=== PATIENT | female | born 1985 | race Caucasian/White ===

== ENCOUNTER 2017-11-16 12:30 | Inpatient (IN) | payer BC, SELFPAY ==
--- NOTE | 2017-11-16 12:57 | PCM.HP.OB ---
History Date of Admission: 11/16/17 Final NIC: 11/18/17 Final NIC Source: LMP Gestational age: 39 Weeks and 5 Days History of this : 32yo @ 39.5 wks, c/o irregular contractions and more pressure since being seen in Office today- pt was 5-6/80/+1 in office- recheck on L&D was 780/+1. pt kept for labor. pt is GBS +. Pertinent Past Medical History: Negative PMH Allergies No Known Allergies Allergy (Verified 10/09/14 21:29) Smoking Status: Never smoker Alcohol: None Drug Use: none Number of Fetus(es): 1 Review of Systems Constitutional: Denies: Anorexia Cardiovascular: Denies: Chest Pain Gastrointestinal: Reports: - - contractions Physical Exam General: Alert, Oriented x3 Abdomen: Soft, Gravid Estimated gestational size: Appropriate for gestational size Presentation: Cephalic Cervix Dilation (cm): 7 Station: 1 Effacement (%): 80 Assessment/Plan 32yo @ 39.5 wks in labor 1) admit to L&D 2) Monitor FHR/TOCO 3) Anticipate 4) Labs reviewed, GBS +, HIV neg, HEP B neg, RUB imm, Syphilis neg, A+ 5) GBS prophylaxis 6) Epdiural if requested for pain mgmt
[2017-11-16] MEDS: Lactated Ringers 1,000 ML 50 ML IV ×2 (12:59→14:01)
[2017-11-16 13:01] VITALS: BMI 25.4
[2017-11-16 13:14] LABS: Hematocrit 35.9 % (37-47); Hemoglobin 11.5 g/dl (12.0-15.0); Mean Corpuscular Hgb 28.3 pg (27.0-32.0); Mean Corpuscular Volume 88.2 fL (81-99); Mean Platelet Vol. 11.3 fl (6.2-12.0); Platelet Count 150 K/mm3 (150-450); RBC Distribution Width CV 13.5 % (11.6-14.6); RBC Distribution Width SD 43.1 fl (35.1-43.9); Red Blood Count 4.07 M/mm3 (4.2-5.4); White Blood Count 11.6 K/mm3 (4.4-11.0)
[2017-11-16 13:22] LABS: Scan Indicated on CBC? Y/N NO
--- NOTE | 2017-11-16 16:41 | PCM.PN.BLA ---
Progress Note pt seen at bedside, doing well. pt reports good pain control with epidural. Does have some pressure. VE: 9/100/+1. Continue to labor- anticipate .
[2017-11-16] MEDS: Oxytocin 30 units/NS 500 ml 30 UNITS/500 ML IV.SOLN 334 UNITS IV (17:23)
--- NOTE | 2017-11-16 17:25 | PCM.OB.VAG ---
Vaginal Delivery Maternal Presentation: Active Labor Amniotic Membrane Rupture Type: Artificial Amniotic Fluid Description: Clear Final NIC: 11/18/17 Gestational age: 39 Weeks and 5 Days Date of Procedure: 11/16/17 Pre-Operative Diagnosis: term gestation in labor Post-Operative Diagnosis: Live female Surgery/ Procedure Performed: Spontaneous Vaginal Delivery Type of Anesthesia: Epidural Description of Procedure: of live female born without complications. Presentation: Vertex Placental Delivery Description: Spontaneous Placenta Disposition: [facility] Cord Vessel Description: 3 Vessels Nuchal Cord Compression: Without compression Cord Entanglement: None Drain: Donaldson to straight drain Estimated Blood Loss: 250 Infant A gender: Female (1 minute): 8 (5 minute): 9 Episiotomy Description: None Laceration: Vaginal Extension/lac - repaired with 3-0 rapide, 1st degree Medications given after delivery: IV Pitocin Complications: None
[2017-11-16] MEDS: Oxytocin 30 units/NS 500 ml 30 UNITS/500 ML IV.SOLN 167 UNITS IV (18:00)
[2017-11-16] MEDS: 0.9% Saline Lock 10 ML Syringe IV (18:54)
[2017-11-16] MEDS: Naproxen 250 MG Tablet PO (22:36)
[2017-11-17] VITALS: BP 108/59; PULSE 70; RESP 16; TEMP 37.2; O2SAT 97
[2017-11-17 04:15] VITALS: BP 111/73; PULSE 66; RESP 16; TEMP 37.2; O2SAT 98
[2017-11-17 08:00] VITALS: BP 105/65; PULSE 76; RESP 20; TEMP 36.9
--- NOTE | 2017-11-17 09:06 | PCM.PN.OB ---
Subjective: doing well, average lochia - Physical Exam General: Alert, Cooperative, No apparent distress Vital Signs Temp Pulse Resp BP Pulse Ox 98.4 F 76 20 H 105/65 98 11/17/17 08:00 11/17/17 08:00 11/17/17 08:00 11/17/17 08:00 11/17/17 04:15 Oxygen Delivery Method Room Air Weight: 73.6 kg Body Mass Index (BMI) 25.4 Intake and Output for Last 24 Hours 11/15/17 11/16/17 11/17/17 23:59 23:59 23:59 Output Total 1200 / 1200 Balance -1200 / -1200 Laboratory Tests Past 24 Hrs 11/16/17 11/16/17 13:00 13:00 WBC 11.6 H RBC 4.07 L Hgb 11.5 L Hct 35.9 L MCV 88.2 MCH 28.3 MCHC 32.0 RDW 13.5 RDW Differential 43.1 Plt Count 150 MPV 11.3 Blood Type A POSITIVE Antibody Screen NEGATIVE Assessment/Plan PPD#1 doing well routine care
[2017-11-17 12:00] VITALS: BP 106/60; BP 115/69; PULSE 71; PULSE 84; RESP 14; TEMP 36.8; TEMP 37.3
[2017-11-17 16:00] VITALS: BP 125/67; PULSE 72; RESP 16; TEMP 36.6
[2017-11-17 20:50] VITALS: BP 118/70; PULSE 74; RESP 17; TEMP 36.8; O2SAT 100
--- NOTE | 2017-11-17 21:58 | DCINST_ITS ---
Discharge Diet: No Restrictions Discharge Activity: Return to Normal Activity, May not drive while taking narcotic pain medications., May Shower May resume sexual activity in: 4-6 weeks Additional Activity Instructions:: Nothing in the vagina for 4-6 weeks. You may return to work/school in 6 weeks. Call your doctor if your incision/area has: Continuous Slow Oozing, Sudden Increased Bleeding, Increased Pain/ Swelling, Increased Redness, Foul Smelling Discharge Additional Instructions: If you experience any of the following, contact your healthcare provider. * Bleeding that soaks a pad every hour for 2 hours * Fever 100.4 or higher * Unrelieved incision or abdominal pain * Swelling, redness, discharge or bleeding from your incision or episiotomy site * Your incision begins to separate * Problems urinating (including inability to urinate or burning while urinating) . * Visual changes * Severe headache * Flu-like symptoms * Pain or redness in one of both of your breasts * Pain, warmth, tenderness or swelling in your legs, especially the calf area * Frequent nausea and vomiting * Symptoms of depression or anxiety If you experience any of the following, call 911 or go to the nearest Emergency Room. * Chest pain * Problems breathing * Seizure activity * Partial or complete paralysis of a body part, slurred speech, weakness or drooping of the face, or a sudden inability to walk or hold your balance Allergies/Adverse Reactions: Allergies No Known Allergies Allergy (Verified 10/09/14 21:29) Medications to take at Discharge Vits [Prenatabs FA ] 1 tablet PO DAILY 10/09/14 Ibuprofen [Motrin] 600 mg PO Q6H PRN #60 tab 11/17/17 The following prescriptions were given: Ibuprofen [Motrin] 600 mg PO Q6H PRN #60 tab PRN Reason: Pain Orders to be completed after discharge: Electric breast pump Location: None Selected Please Follow Up With: Caitlin Hartman MD - [phone] When: Call to make an appointment with your doctor in 6 weeks. If you had elevated Blood Pressure or 4th degree laceration you will need to be seen in 2 weeks. Primary Care Physician: Care Physician,No Primary [Primary Care Provider] -
[2017-11-18 04:00] VITALS: BP 113/75; PULSE 64; RESP 18; TEMP 36.6
[2017-11-18] MEDS: Acetaminophen 500 MG Tablet 1000 MG PO (04:11)
--- NOTE | 2017-11-18 08:10 | PCM.PN.OB ---
Subjective: pt seen at bedside, doing well. pt reports good pain control. Lochia mild. Breast feeding well - Physical Exam General: Alert, Oriented x3 Abdomen: Soft, Non Tender, Non-Distended, - - fundus firm Extremities: No Calf Tenderness Vital Signs Temp Pulse Resp BP Pulse Ox 97.8 F 64 18 113/75 100 11/18/17 04:00 11/18/17 04:00 11/18/17 04:00 11/18/17 04:00 11/17/17 20:50 Oxygen Delivery Method Room Air Weight: 73.6 kg Body Mass Index (BMI) 25.4 Intake and Output for Last 24 Hours 11/16/17 11/17/17 11/18/17 23:59 23:59 23:59 Output Total 1200 / 1200 Balance -1200 / -1200 Assessment/Plan PPD#2, doing well routine care pain mgmt dc home
[2017-11-18 08:40] VITALS: BP 105/70; PULSE 86; RESP 14; TEMP 36.7; O2SAT 98
== END 2017-11-18 10:50 | disposition home or self-care (01) | DRG 775 ==
PROVIDERS: Admitting Provider Obstetrics & Gynecology; Visit Provider Obstetrics & Gynecology
DX: O99.824 Streptococcus B carrier state complicating childbirth (principal); O70.0 First degree perineal laceration during delivery; Z3A.39 39 weeks gestation of pregnancy; Z37.0 Single live birth
CPT/HCPCS: 59025; 59050; 85027; 86850; 86900; 99218; J7120; A4216; G0378

== ENCOUNTER → 2023-06-08 | Outpatient (CLI) | payer OTHER, SELFPAY ==
--- NOTE | 2023-06-08 10:00 | MRI_ITS ---
STUDY: MRI RIGHT HAND REASON FOR EXAM: Female, 38 years old. Cyst -- assess mass dorsum PIP ring finger. Irritated bump on right ring finger. Dull throbbing on knuckle when bending or if it gets hit. TECHNIQUE: Standardized fat and water weighted pulse sequences were obtained in all 3 orthogonal planes. COMPARISON: None. FINDINGS: There is minimal fourth digit flexor tenosynovitis (axial STIR series 6 image 33). Normal remainder of the flexor tendons, without tear or tenosynovitis. Normal visualized annular lazara system. Normal volar plates. Normal extensor tendons, without tendon tear, subluxation or tenosynovitis. Normal sagittal bands and dorsal expansion (lewis). Normal first through fifth MCP joints without degenerative change, synovitis, periarticular inflammation or marginal erosions. Normal interphalangeal joint of the thumb. Normal second through fifth PIP joints without degenerative change, synovitis, periarticular inflammation or marginal erosions. There is a slightly prominent curvilinear vascular structure coursing over the dorsal ulnar aspect of the fourth PIP joint, but no discrete soft tissue mass (coronal STIR series 4 image 6; axial STIR series 6 images 18-19). Normal second through fifth DIP joints without degenerative change, synovitis, periarticular inflammation or marginal erosions. Normal marrow within the metacarpals and visualized phalanges without reactive edema, fracture or subluxation. Normal muscle groups of the thenar and hypothenar eminences. Normal lumbricalis and interosseous muscles. Normal subcutis adipose space. MRI/Upper Ext/No Jt/ wo IMPRESSION: Minimal fourth digit flexor tenosynovitis. Slightly prominent curvilinear vascular structure coursing over the dorsal ulnar aspect of the fourth PIP joint, but no discrete soft tissue mass. Electronically Signed: Aguilar Manning MD at 11:47 EDT ,
== END | disposition home or self-care (01) ==
PROVIDERS: Referring Provider Orthopaedic Surgery Sports Medicine; Visit Provider Orthopaedic Surgery Sports Medicine
DX: M65.9 Synovitis and tenosynovitis, unspecified (principal)
CPT/HCPCS: 73218

== ENCOUNTER 2024-10-31 05:11 | Inpatient (IN) | payer OTHER, SELFPAY ==
[2024-10-31] VITALS (43 sets, daily range): BP systolic 81–135; BP diastolic 45–87; PULSE 60–96; RESP 14–17; TEMP 36.3–37.1; O2SAT 96–100; BMI 28.3
[2024-10-31] MEDS: Lactated Ringers 1,000 ML 999 ML IV (05:30)
[2024-10-31 05:43] LABS: Absolute Lymphocyte Count 2.06 X10^3/uL (0.83-4.51); Absolute Neutrophil Count 6.6 X10^3/uL (2.0-7.7); Basophil# 0.03 X10^3/uL; Basophil% 0.3 % (0-1); Eosinophil# 0.19 X10^3/uL; Hematocrit 32.9 % (37-47); Hemoglobin 11.3 g/dL (12.0-15.0); Lymphocyte # 2.06 X10^3/ul (0.83-4.51); Lymphocyte % 21.8 % (19-41); Mean Corp Hgb Conc 34.3 g/dL (32-36); Mean Corpuscular Hgb 29.4 pg (27.0-32.0); Mean Corpuscular Volume 85.7 fL (81-99); Mean Platelet Vol. 11.7 fl (6.2-12.0); Monocyte% 5.3 % (0-10); NRBC Flagged by Analyzer 0 % (0-5); Neutrophil # 6.64 X10^3/uL (2.7-7.7); Neutrophil % 70.4 % (47-70); Platelet Count 173 K/mm3 (150-450); RBC Distribution Width CV 14.2 % (11.6-14.6); RBC Distribution Width SD 43.8 fl (35.1-43.9); Red Blood Count 3.84 M/mm3 (4.2-5.4); White Blood Count 9.4 K/mm3 (4.4-11.0)
[2024-10-31] MEDS: Lactated Ringers 1,000 ML 200 ML IV ×2 (06:40→10:00)
--- NOTE | 2024-10-31 06:58 | PCM.HP.OB ---
HPI - General General Date of Admission: 10/31/24 Date of Service: 10/31/24 Chief Complaint: contractions HPI Narrative AMELIA GUERRA, is a 39 F who presents contractions starting last night. 4.5 cm with a history of quick labors GBS negative Maternal Data Information Final NIC: 11/05/24 Gestational age: 39+2 [facility] Medical History (Updated 10/31/24 @ 06:[address] Valarie Rodriguez MD) Anxiety Digital mucous cyst of finger of right hand Ganglion cyst of finger of right hand Home Medications ?Medication ?Instructions ?Recorded ?Last Taken ?Type drospirenone 3 mg-ethinyl 1 tab PO DAILY 05/10/23 Unknown History estradiol 0.02 mg tablet (Vestura (28)) fluoxetine 20 mg capsule 20 mg PO DAILY 05/10/23 10/30/24 08:00 History 20 mg sennosides 8.6 mg-docusate sodium 1 tab-cap PO DAILY 05/10/23 10/30/24 20:00 History 50 mg tablet (Senna Plus) 1 tab-cap apple cider vinegar 250 mg 250 mg PO DAILY 10/31/24 10/30/24 08:00 History chewable tablet 250 mg docosahexaenoic acid 200 mg 200 mg PO DAILY 10/31/24 10/30/24 08:00 History capsule ( DHA) 200 mg Allergy/AdvReac Type Severity Reaction Status Date / Time No Known Allergies Allergy Verified 10/31/24 03:18 Family History Mother Breast cancer Father Diabetes Social History Smoking Status: Never smoker alcohol intake: current alcohol intake frequency: a few times a week what type of physical activity do you participate in: running, bicycling and swimming frequency: 1-2 times per week History 3 Elective abortions Hx Para 2 Spontaneous abortions Hx # Term Pregnancies Ectopic pregnancies Hx # Pregnancies Multiple births # of living children 2 NST FHR Rate Baby A Baseline: 150 Variability:: Moderate Accelerations:: 15 x 15 Decelerations:: None NST Reactive:: Yes FHR Category:: Category I Uterine Activity:: q6 ROS Constitutional Constitutional: Denies fatigue, fever(s) or malaise Eyes Eyes: Denies change in vision ENT HEENT: Denies dizziness or headache(s) Cardiovascular Cardiovascular: Denies chest pain, dyspnea or lightheadedness Respiratory/Chest Respiratory/Chest: Denies cough or dyspnea Gastrointestinal Gastrointestinal: Denies change in bowel habits Genitourinary Genitourinary: Denies burning urination or genital lesions Integumentary Integumentary: Denies rash Neurologic Neurologic: Denies confusion, dizziness, headache(s), numbness or weakness Vital Signs Vital Signs Vital Signs: 10/31/24 03:12 10/31/24 03:12 10/31/24 03:12 Temperature Temperature Source Temporal Pulse Rate 94 Respiratory Rate Blood Pressure 135/75 H BP Systolic 135 BP Diastolic 75 Pulse Ox 10/31/24 03:12 10/31/24 03:12 10/31/24 03:12 Temperature Temperature Source Pulse Rate 94 Respiratory Rate 16 Blood Pressure BP Systolic BP Diastolic Pulse Ox 98 10/31/24 03:12 10/31/24 06:34 10/31/24 06:34 Temperature 98.0 F Temperature Source Pulse Rate 82 Respiratory Rate Blood Pressure 116/82 H BP Systolic 116 BP Diastolic 82 Pulse Ox 10/31/24 06:34 10/31/24 06:36 10/31/24 06:36 Temperature Temperature Source Pulse Rate 80 Respiratory Rate 16 Blood Pressure BP Systolic BP Diastolic Pulse Ox 100 10/31/24 06:41 10/31/24 06:41 10/31/24 06:41 Temperature Temperature Source Pulse Rate 85 Respiratory Rate Blood Pressure 121/87 H BP Systolic 121 BP Diastolic 87 Pulse Ox 100 10/31/24 06:41 10/31/24 06:47 10/31/24 06:47 Temperature Temperature Source Pulse Rate 60 Respiratory Rate 16 Blood Pressure 90/50 L BP Systolic 90 BP Diastolic 50 Pulse Ox 10/31/24 06:48 10/31/24 06:48 10/31/24 06:49 Temperature Temperature Source Pulse Rate 65 Respiratory Rate Blood Pressure 90/55 L BP Systolic 90 BP Diastolic 55 Pulse Ox 98 10/31/24 06:49 10/31/24 06:51 10/31/24 06:51 Temperature Temperature Source Pulse Rate 75 78 Respiratory Rate Blood Pressure 86/56 L BP Systolic 86 BP Diastolic 56 Pulse Ox 10/31/24 06:53 10/31/24 06:53 10/31/24 06:53 Temperature Temperature Source Pulse Rate 73 Respiratory Rate Blood Pressure 91/63 BP Systolic 91 BP Diastolic 63 Pulse Ox 100 10/31/24 06:55 10/31/24 06:55 Temperature Temperature Source Pulse Rate 71 Respiratory Rate Blood Pressure 102/55 L BP Systolic 102 BP Diastolic 55 Pulse Ox Weight Weight: 82.1 kg Body Mass Index (BMI) 28.3 Physical Exam Const alert and no apparent distress General Appearance: cooperative HEENT normocephalic Resp normal respiratory effort Cardio regular rate GI soft to palpation GI Narrative: gravid, nontender, appropriate for gestational age Extremity no calf tenderness General Extremity: edema Skin no wounds Rashes: No rashes noted Psych activity/motor behavior normal Labs Labs Labs: Blood Type A POSITIVE Antibody Screen NEGATIVE Hct 32.9 % (37-47) L Hgb 11.3 g/dL (12.0-15.0) L Syphilis Total Ab Pending Rhogam given: No Assessment & Plan (1) Term : (2) 39 weeks gestation of : PLAN: Plan Epidural AROM Pit prn
[2024-10-31] MEDS: fentaNYL-bupivacaine (epidural) 100 ML BAG EPIDURAL ×2 (07:05→11:49)
[2024-10-31] MEDS: Ondansetron 4 MG/2 ML Vial IV (07:49)
[2024-10-31] MEDS: Oxytocin 15 Units/NS 250ml 15 UNITS/250 ML IV.SOLN 2 UNITS IV (08:08)
--- NOTE | 2024-10-31 08:09 | PN.OBGYN_ITS ---
Subjective Subjective Patient seen at bedside. Comfortable with epidural. Objective Data Objective Data Vital Signs: Vital Signs Temp Pulse Resp BP Pulse Ox 97.4 F L 71 16 115/70 96 10/31/24 07:20 10/31/24 07:31 10/31/24 07:20 10/31/24 07:31 10/31/24 07:18 Weight: 180 lb 15.992 oz Body Mass Index (BMI) 28.3 Intake & Output: Intake and Output for Last 24 Hours 10/29/24 10/30/24 10/31/24 23:59 23:59 23:59 Intake Total 1566.17 / 1566.17 Balance 1566.17 / 1566.17 Lab / Micro Data 10/31/24 05:30 Labs: Laboratory Results - last 24 hr 10/31/24 05:30: WBC 9.4, RBC 3.84 L, Hgb 11.3 L, Hct 32.9 L, MCV 85.7, MCH 29.4, MCHC 34.3, RDW Std Deviation 43.8, RDW Coeff of Gianni 14.2, Plt Count 173, MPV 11.7, Immature Gran % (Auto) 0.200, Neut % (Auto) 70.4 H, Lymph % (Auto) 21.8, [place] % (Auto) 5.3, Eos % (Auto) 2.0, Baso % (Auto) 0.3, Absolute Neuts (auto) 6.6, Absolute Lymphs (auto) 2.06, Nucleated RBC % 0 Assessment & Plan (1) 39 weeks gestation of : (2) Term : (3) Spontaneous onset of labor: PLAN: Plan CE /-2 AROM for clear fluid NST reactive Start Pitocin at 2 mu/min and increase per orders Anticipate
[2024-10-31 08:39] LABS: Syphilis Antibodies Non-reactive
--- NOTE | 2024-10-31 12:20 | OB.VAGDELI_ITS ---
Assessment & Plan (1) (spontaneous vaginal delivery): (2) Anxiety: (3) Care and examination of lactating mother: Maternal Data Information NIC Calculator Estimated Delivery Date Method Current WG Current Estimate 11/05/24 Manual 39w 2d Vaginal Delivery Maternal Presentation Maternal Presentation: Other (Spontaneous onset of labor/contractions) Maternal Presentation: Patient is at 39.2 weeks gestation that presented in spontaneous labor. Type of Induction: Pitocin and Amniotomy Vaginal Delivery Information Procedure Performed: Spontaneous Vaginal Delivery Surgeon/Practitioner: Britni Morales Pre-Procedure Diagnosis: Term gestation, spontaneous onset of labor Post-Procedure Diagnosis: , Live male Type of anesthesia: Epidural Estimated Blood Loss: 200 Time of Delivery: 12:11 Findings Description of procedure: Patient progressed to complete dilation. With good maternal effort, head delivered followed by anterior shoulder and remainder of body without any force, delay, or traction. Vigorous male was delivered atraumatically and placed on maternal abdomen. Pitocin IV started for active management of the third stage of labor. 3 vessel cord clamped and cut after delay and infant placed immediately skin to skin with patient. Placenta delivered spontaneously and intact. After inspection, vagina and perineum are intact. Vaginal sweep performed. Fundus is firm 2 below U and bleeding is hemostatic. Sponge and sharps counts correct. Patient and bonding well at this time. Dr. Bravo notified of delivery. Routine post orders placed. 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
[2024-10-31] MEDS: Oxytocin 15 Units/NS 250ml 15 UNITS/250 ML IV.SOLN 83 UNITS IV (12:56)
[2024-10-31] MEDS: Ibuprofen 600 MG Tablet PO (20:38)
[2024-11-01 00:31] VITALS: BP 105/62; PULSE 62; RESP 16; TEMP 36.9; O2SAT 98
[2024-11-01] MEDS: Acetaminophen 500 MG Tablet 1000 MG PO (02:18)
[2024-11-01 04:49] VITALS: BP 105/68; PULSE 58; RESP 16; TEMP 36.2; O2SAT 100
[2024-11-01] MEDS: Ibuprofen 600 MG Tablet PO (05:55)
[2024-11-01 08:24] VITALS: BP 112/80; PULSE 64; RESP 16; TEMP 36.6; O2SAT 98
--- NOTE | 2024-11-01 08:47 | PCM.PN.OB ---
Subjective Subjective Denies complaints. Objective Data Objective Data Vital Signs: Vital Signs Temp Pulse Resp BP Pulse Ox O2 Del Method 97.8 F 64 16 112/80 98 Room Air 11/01/24 08:24 11/01/24 08:24 11/01/24 08:24 11/01/24 08:24 11/01/24 08:24 11/01/24 08:24 Oxygen Delivery Method Room Air Weight: 180 lb 15.992 oz Body Mass Index (BMI) 28.3 Intake & Output: Intake and Output for Last 24 Hours 10/30/24 10/31/24 11/01/24 23:59 23:59 23:59 Intake Total 3383.33 / 3383.33 Output Total 1200 / 1200 Balance 2183.33 / 2183.33 Lab / Micro Data 10/31/24 05:30 Labs: Laboratory Results - last 24 hr 10/31/24 05:30: Blood Type A POSITIVE, Antibody Screen NEGATIVE Physical Exam Const alert, oriented x3 and no apparent distress HEENT normocephalic GI soft to palpation, non-tender and non-distended GI Narrative: fundus firm, mid & below umbilicus Extremity normal to inspection and no calf tenderness Assessment & Plan (1) (spontaneous vaginal delivery): COMMENT: PPD#1 PLAN: Plan D/c home later today
--- NOTE | 2024-11-01 08:48 | DCINST_ITS ---
Discharge Instructions Diet Discharge Diet: No restrictions DC O2, CPAP, BIPAP needs Home O2 Discharge instructions: No Dressing / Incision May resume sexual activity in: 6 weeks Weight Bearing Status: Weight bearing as tolerated Dressing / Incision Call your doctor if you observe: Fever of 101 or Higher, Coldness, Increased Pain, Change in Color, Inability to urinate, Inability to have a bowel movement, Using more than 1 pad per hour, Shortness of breath, Dizziness, Fainting spells, Chest pain, Increased palpitations (irregular heartbeat), Calf discomfort and Uncontrolled pain Follow Up Care Please Follow Up With: Justin العراقي MD When: Follow up in 2 and 6 weeks for visits. Test Results: Test results from this visit will be discussed in further detail at your follow- up appointment, if applicable. Discharge Plan Admission Admit Date/Time: 10/31/24 05:11 Primary Reason for Your Visit: Vaginal delivery Attending Provider: Britni Morales Primary Care Provider: EVELIN WILSON Discharge Orders/Prescriptions Prescriptions: New acetaminophen 500 mg Tablet 1,000 mg PO Q6H PRN PRN (Reason: Pain 1-10 Or Fever) Qty: 0 0RF ibuprofen 600 mg Tablet 600 mg PO Q6H PRN PRN (Reason: Pain Score 1-10) Qty: 0 0RF Continued fluoxetine 20 mg capsule 20 mg PO DAILY Patient Comments: TAKE 1 CAPSULE BY MOUTH EVERY DAY sennosides-docusate sodium [Senna Plus] 8.6-50 mg tablet 1 tab-cap PO DAILY Patient Comments: TAKE 1 TABLET BY MOUTH EVERY DAY DHA 200 mg capsule 200 mg PO DAILY Discontinued drospirenone-ethinyl estradiol [Vestura (28)] 3-0.02 mg tablet 1 tab PO DAILY apple cider vinegar 250 mg tablet,chewable 250 mg PO DAILY Referrals / Follow Up: EVELIN WILSON MD [Primary Care Provider] - Disposition Disposition (needs filled in before D/C Order can be placed): Home, Self Care
[2024-11-01] MEDS: FLUoxetine 20 MG Capsule PO (10:01)
[2024-11-01 12:25] VITALS: BP 130/84; PULSE 67; RESP 16; TEMP 36.7; O2SAT 99
--- NOTE | 2024-11-01 16:52 | CASEMGMT ---
Social Work Assessment Labor and Delivery Unit Patient Address: [address] [place] [address] [place] [address] Phone number: [phone] Date of Referral: 10/31/24 Time of Referral:? 1527 Referred By: Britni Morales Date of Intervention: ??11/01/24 Time of Intervention:? 1330 Reason for Referral:?anxiety, on prozac History obtained from: medical records, mother of baby (MOB) Dianelys; father of baby (FOB) Brad Household composition: MOB reports that currently residing in the home is self, FOB Brad, and 2 girls (ages 10 and 7). baby boy, Toan العراقي, to be added to home when ready for discharge. MOB states that housing is safe and secure. Patient's parent/guardian status:?MOB reports that FOB is Brad. MOB and FOB have reportedly been for 12 years. Medical History: ?FERNANDA is a 39 year old female who is 3, para 2-now 3 following labor and delivery of . MOB received care during with [facility]. MOB presented to hospital due to contractions at 39 weeks gestation on 10/31/24. Horatio baby boy, Toan العراقي, was born weighing 7lbs, 12oz with apgars of 8 and 9 at one and five minutes of life respectively. MOB is and baby will be followed by [facility] for pediatrics. Educational Status:? MOB states having a Bachelor's in Business Marketing and FOB reports having a Bachelor's in Business Administration. 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 MOB reports being able to take a full 4 weeks off before slowly transitioning back into off-site work. FOB reports being currently employed as a financial business analyst at a local company. FOB states that season is not an ideal time to be off, though FOB states the company being understanding and allowing FOB flexibility in work schedule currently. Infant Supplies: MOB and FOB have obtained all necessary baby supplies, including: car seat, safe sleep space, clothes, diapers, and wipes. MOB reports having more supplies than needed due to having many friends in the neighborhood who have blessed MOB's family. Childcare/Caregiver(s):? MOB states not currently needing childcare due to having a flexible, off-site job. MOB states FOB's parents and MOB's mother as good supports in case a childcare need arises. MOB also states living in a neighborhood where a lot of family friends are located that MOB would feel safe leaving baby with. Transportation:??MOB and FOB both report having yard truck driver's licenses and reliable transportation. Programs/Agencies Involved: ??MOB and FOB both deny having connections to any local programs or agencies. Children Services/Legal Issues:??? MOB and FOB both deny having any current or previous children's services involvement or other legal issues. Behavioral Health Issues: ??Mental Health History:?MOB reports having anxiety and being prescribed Prozac; MOB reported taking this during without issue. MOB denies current counseling involvement, but [facility]FOB denies any mental health history, substance use, or domestic violence history.? Substance Use History:?MOB and FOB both deny any substance use history or current substance use.? Family History:??MOB and FOB both deny any family history of mental health or substance use.? Drug Screens: N/A Family/Social Stressors:? MOB and FOB both denied any specific concerns or stressors at this time. MOB states both extended families to be supportive and reported no concerns. Support Systems: MOB reports FOB's parents and MOB's mother as good supports, as well as living in . MOB also states living in a neighborhood where a lot of family friends are located that MOB would feel safe leaving baby with. Depression/Shaken Baby/Safe Sleeping: SW educated MOB and FOB on signs and symptoms of baby blues and mood and anxiety disorders to be mindful of during this period. MOB states understanding that MOB is at a greater risk of this due to MOB's diagnosis of anxiety. MOB states feeling very supported by FOB and states ability to talk with FOB if MOB were to struggle with mental health during this time. SW also encouraged MOB to touch base with MOB's OBGYN if MOB is struggling with mental health. SW educated MOB and FOB on shaken baby prevention and ABCs of safe sleep. MOB and FOB expressed understanding. ASSESSMENT:? MOB and baby admitted following labor and delivery. MOB has mental health (anxiety) history and takes prescription of Prozac as prescribed. MOB observed sitting on couch while FOB was in recliner holding sleeping baby throughout conversation. Nursing had no concerns with MOB or FOB's attentiveness toward baby. MOB and FOB talkative and open during SW completion of assessment. MOB was receptive to resources provided and discussed. Safe Plan of Care for infant related to substance use:? N/A PLAN:?? No other services requested or indicated. MOB and baby to be discharged when medically ready. Parents were provided literature regarding: signs and symptoms of baby blues and mood and anxiety disorders, Help Me Grow, shaken baby prevention, ABCs of safe sleep, and [facility]. MOB and FOB denied further needs at this time. Silva Bhatti, IT SOLUTIONS ARCHITECT, COMPUTER METEOROLOGIST
== END 2024-11-01 14:25 | disposition home or self-care (01) | DRG 807 ==
LOC: WPOUT 05:25 → WP 05:25
PROVIDERS: Obstetrics & Gynecology; Admitting Provider Obstetrics & Gynecology; PCP Family Medicine; Referring Provider Obstetrics & Gynecology; Visit Provider Advanced Practice Midwife
DX: O99.344 Other mental disorders complicating childbirth (principal); Z37.0 Single live birth; F41.9 Anxiety disorder, unspecified; Z3A.39 39 weeks gestation of pregnancy
CPT/HCPCS: 59025; 59050; 85025; 86780; 86850; 86900; 86901; J2405

== ENCOUNTER 2025-01-25 10:46 | Day surgery (SDC) | payer OTHER, SELFPAY ==
--- NOTE | 2025-01-09 11:41 | PCM.HP.BLA ---
History and Physical Date of Admission: 01/25/25 VIRTUAL VISIT HISTORY AND PHYSICAL This is a virtual visit using [employer] Zoom Video Visit. It required patient-provider interaction for the medical decision making as documented below. I have communicated my name and active licensure. The patient's identity and physical location were verified at the time of this visit. Either the patient or their legal food service representative has been informed of the risks and benefits of -- and alternatives to -- treatment through a remote evaluation and consents to proceed with the evaluation remotely. Pre-Op History and Physical HPI: The patient is a 39 year old female presenting for pre-operative visit. She is scheduled for laparoscopic bilateral salpingectomy, for desires sterilization on January 25, 2025. Procedure discussed along with risks, benefits and complications. Other alternatives discussed for management. Consent form signed? Yes. PAST MEDICAL HISTORY PAST MEDICAL HISTORY Diagnosis Date ? Anemia affecting in third trimester (HCC) 08/08/2024 ? Anxiety state ? FRACTURE AGE 18 LEFT ARM PAST SURGICAL HISTORY PAST SURGICAL HISTORY Procedure Laterality Date ? EXTRACTION, ERUPTED TOOTH OR EXPOSED ROOT (ELEVATION AND/OR FORCEPS REMOVAL) 2003 ? INSERTION OF IUD 01/17/2018 Mirena ? IUD REMOVAL 2019 CURRENT MEDICATIONS Current Outpatient Medications Medication Sig Dispense Refill ? inulin (FIBER GUMMIES ORAL) ? magnesium aspart,citrate,oxide 400 mg magnesium cap Take by mouth as directed. ? aspirin, enteric coated (ECOTRIN LOW STRENGTH) 81 mg EC tablet Take 1 tablet by mouth once daily. 90 tablet 3 ? L.rhamnosus/B.animalis,lactis, (CULTURELLE BABY DIGESTIVE CALM ORAL) Take 1 tablet by mouth once daily. ? cetirizine HCl (ZYRTEC ORAL) Take 1 tablet by mouth once daily. ? APPLE CIDER VINEGAR ORAL Take 1 tablet by mouth once daily. ? nvmcohid24/iron fernanda/folic/dha ( DHA+COMPLETE ORAL) Take by mouth. ? FLUoxetine (PROZAC) 20 mg capsule No current facility-administered medications for this visit. ALLERGIES: Patient has no known allergies. PERSONAL HISTORY: SOCIAL HISTORY Social History Tobacco Use ? Smoking status: Never ? Smokeless tobacco: Never Vaping Use ? Vaping status: Never Used Substance Use Topics ? Alcohol use: Not Currently Comment: Rare, NOT WHILE ? Drug use: No FAMILY HISTORY: FAMILY HISTORY FAMILY HISTORY Problem Relation Age of Onset ? Blood Disease Mother ANEMIA ? Breast Cancer Mother 53 stage 1 left breast ? Genetic Mother BRCA2+ ? Diabetes Father ? Heart Paternal Grandfather ? Ovarian cancer Other 58 Mother of maternal grandfather REVIEW OF SYMPTOMS: negative except as noted above PHYSICAL EXAMINATION: VITALS: Last menstrual period 01/30/2024, currently . GENERAL: The patient is well nourished, well hydrated in no acute distress. , The patient is oriented to time, place, and person. NECK: full range of motion IMPRESSION: 39yo requesting Sterilization PLAN: Laparoscopic bilateral salpingectomy Pt has been counseled on risks/benefits and alternatives of surgery including but not limited to anesthesia, bleeding, infection, injury to pelvic structures including bowel, bladder, ureters and vessels. Pt wishes to proceed with surgery at this time. Pt to come to office to sign consent form this week Pre and post op instructions reviewed I have reviewed and updated past medical and surgical history, medications and allergies Caitlin Hicks MD
[2025-01-25] VITALS (11 sets, daily range): BP systolic 101–125; BP diastolic 38–81; PULSE 46–65; RESP 14–18; TEMP 36.1–36.6; O2SAT 98–100; BMI 25.2
[2025-01-25 11:18] LABS: Internal QC Validated? YES +Cl - CLEAR BKGD
[2025-01-25 11:19] LABS: Pregnancy, Urine Negative Negative
[2025-01-25] MEDS: Lactated Ringers 1,000 ML 15 ML IV (11:19)
--- NOTE | 2025-01-25 11:36 | DCINST_ITS ---
Discharge Instructions Diet Discharge Diet: No restrictions DC O2, CPAP, BIPAP needs Home O2 Discharge instructions: No Dressing / Incision May resume sexual activity in: 2 weeks Lifting Restrictions: 20-25 lbs Dressing / Incision Call your doctor if your incision/area has: Continuous Slow Oozing, Sudden Increased Bleeding, Increased Pain/ Swelling, Increased Redness, Foul Smelling Discharge and Swelling at the incision site Call your doctor if you observe: Fever of 101 or Higher, Inability to urinate, Inability to have a bowel movement, Using more than 1 pad per hour and Uncontrolled pain Remove Dressing in: leave until fall off (or 2 weeks you can remove if glue still in place.) Additional Dressing/Incision Instructions:: You have skin glue over your incision sites, do not pick off. You may shower and let the soap and water run over the incision sites and dab dry. Follow Up Care Please Follow Up With: Caitlin Hartman MD When: I will call you with pathology report in 1-2 weeks but if you feel you need an appointment please call [phone] Test Results: Test results from this visit will be discussed in further detail at your follow- up appointment, if applicable. Discharge Plan Admission Attending Provider: Caitlin Hartman Primary Care Provider: EVELIN WILSON Instructions Print Language: Greenlandic Discharge Orders/Prescriptions Prescriptions: No Action fluoxetine 20 mg capsule 20 mg PO DAILY Patient Comments: TAKE 1 CAPSULE BY MOUTH EVERY DAY DHA 200 mg capsule 200 mg PO DAILY Fiber Delights 2 gram tablet,chewable 1 g PO DAILY apple cider vinegar 250 mg tablet,chewable 250 mg PO DAILY cetirizine [24Hour Allergy] 10 mg tablet 10 mg PO DAILY PRN (Reason: allergy symptoms) Referrals / Follow Up: EVELIN WILSON MD [Primary Care Provider] - Disposition Disposition (needs filled in before D/C Order can be placed): Home, Self Care
--- NOTE | 2025-01-25 11:42 | PRE.ANES_ITS ---
ASA Classification* ASA Classification ASA Classification: 2 Assessment & Plan Anesthesia* Anesthesia Assessment Anesthesia Assessment: Discussed sedation and/or anesthesia options, risks, benefits, and alternatives with patient/parents/legal guardian/POA. Questions invited. The patient/parents/legal guardian/POA seems to understand and agrees to proceed with anesthesia plan. Reviewed the physical assessment, medical history, allergy history and patient home medications list prior to surgery/procedure/anesthetic and documented any changes. Performed airway and anesthesia risk assessments. Anesthesia Type Anesthesia Type: General Anesthesia Focused Assessment* Temperature: 97.9 F Pulse Rate: 61 Blood Pressure: 107/81 Respiratory Rate: 14 Pulse Ox: 100 Airway Assessment Mouth opens: >3 cm Mallampati Score: II Focused Labs Anesthesia Preop lab: CBC WBC 9.4 K/mm3 (4.4-11.0) 10/31/24 05:30 10/31/24 RBC 3.84 M/mm3 (4.2-5.4) L 10/31/24 05:30 10/31/24 Hgb 11.3 g/dL (12.0-15.0) L 10/31/24 05:30 5 Hct 32.9 % (37-47) L 10/31/24 05:30 10/31/24 Plt Count 173 K/mm3 (150-450) 10/31/24 05:30 10/31/24 CHEMISTRY COAG Urine Test Negative Negative 01/25/25 11:05 01/25/25 Pre-Assessment Diagnosis/Proposed Procedure Planned Operative Procedure(s): BILAT LAP SALPING Anesthesia History Anesthesia History - clinical informaticist: Anesthesia History - clinical informaticist Hx Hospitalization No 01/04/25 13:19 Any Problems With Anesthesia No 01/04/25 13:19 Cholinesterase deficiency No 01/04/25 13:19 You/Your Family Experience No 01/04/25 13:19 fever (hyperthermia) with Relationship Recent Exposure to Contagious Disease Does patient have nerve No 01/04/25 13:19 stimulator Patient instructed to have device shut off --Does patient have Pacemaker No 01/25/25 11:12 or ICD? When Was Last Pacemaker Check QUESTION #4 FULL TEXT: You/Your Family Experience fever (hyperthermia) with Anesthesia Last Oral Intake Last Oral intake: Last Oral Intake NPO since 18:00 01/25/25 11:12 Meds taken in AM with sips of No 01/25/25 11:12 water? Meds patient instructed to take am of surgery PONV PONV - clinical informaticist: PONV - clinical informaticist Female Yes 01/04/25 13:19 HX of Motion Sickness Yes 01/04/25 13:19 HX of N/V After Surgery No 01/04/25 13:19 Non-Smoker Yes 01/04/25 13:19 Duration of Surgery greater No 01/04/25 13:19 than 60 minutes Number of Risk Factors 3 01/04/25 13:19 PONV Score Moderate Risk 01/04/25 13:19 Height & Weight Height & Weight: Anesthesia: Height & Weight Height 5 ft 7 in 01/25/25 11:12 Weight: 73 kg 01/25/25 11:12 Body Mass Index (BMI) 25.2 01/25/25 11:12 Respiratory Assessment Respiratory Assessment - clinical informaticist: Respiratory Tract Infection Hx - clinical informaticist Hx Respiratory Tract Infection No 01/04/25 13:19 STOP Sleep Apnea STOP Sleep Apnea - clinical informaticist: STOP Sleep Apnea - clinical informaticist Hx Hypertension No 01/04/25 13:19 Hx Sleep Apnea No 01/04/25 13:19 CPAP BIPAP Do you snore loudly (louder No 01/04/25 13:19 than talking or can be heard Do you often feel tired/ No 01/04/25 13:19 fatigued/ sleepy during daytime? Has anyone observed you stop No 01/04/25 13:19 breathing during sleep? STOP Results Negative 01/04/25 13:19 QUESTION #5 FULL TEXT : Do you snore loudly (louder than talking or can be heard through closed doors)? Tobacco Use History Tobacco Use History - clinical informaticist: Tobacco Use History - clinical informaticist Tobacco Use Smoking Status Never smoker 01/04/25 13:19 Hx Tobacco Use No 01/04/25 13:19 Years Smoking Packs Smoked per Day Smoking Cessation Date was within the last 15 years Hx Smoking Cessation Date Hx Smoking Cessation Counseling Hematologic Medial History Hematologic Hx - clinical informaticist: Hematologic Medical Hx - industrial maintenance manager Hx of Blood Transfusion No 01/04/25 13:19 Hx of Transfusion in last 3 No 01/04/25 13:19 Months Date of Last Transfusion (if within last 3 months) Ever experience any problems No 01/04/25 13:19 with transfusion(s)? Specify any problems Hx of Preganancy in last 3 Yes 01/04/25 13:19 Months Nurse Filling Out Transfusion NBUCHER 01/04/25 13:19 & Questions: Date: 01/04/25 01/04/25 13:19 Time: 13:19 01/04/25 13:19 Patient unable to answer at this time (ie. confused, unrespo /Reproduction History /Reproductive History - clinical informaticist: /Reproductive Hx- clinical informaticist Hx Now No 01/04/25 13:19 Gestational Age (in weeks): EDC: Hx Hx Para Hx Section SAB Yes 01/04/25 13:19 Active Medications Active Medications: Current Medications Generic Name Dose Route Start Last Admin Trade Name Freq PRN Reason Stop Dose Admin Lactated Ringer's 1,000 mls @ 15 mls/hr 01/25/25 11:00 01/25/25 11:19 IV 15 mls/hr .Q48H SHO Administration PFSH Medical History Anxiety Non-smoker Anxiety Digital mucous cyst of finger of right hand Ganglion cyst of finger of right hand Home Medications ?Medication ?Instructions ?Recorded ?Last Taken ?Type fluoxetine 20 mg capsule 20 mg PO DAILY 05/10/2310/13 08:00 History 20 mg docosahexaenoic acid 200 mg 200 mg PO DAILY 10/31/24 0 10/30/24 08:00 History capsule ( DHA) 200 mg apple cider vinegar 250 mg 250 mg PO DAILY 01/04/25 Un known History chewable tablet cetirizine 10 mg tablet (24Hour 10 mg PO DAILY PRN all ergy symptoms 01/04/25 Unknown History Allergy) inulin 2 gram chewable tablet 1 g PO DAILY 01/04/25 Un known History (Fiber Delights) Allergy/AdvReac Type Severity Reaction Status Date / Time No Known Allergies Allergy Verified 01/25/25 11:11 Family History Mother Breast cancer Father Diabetes Surgical History History of wisdom tooth extraction Social History Smoking Status: Never smoker alcohol intake: current alcohol intake frequency: a few times a week what type of physical activity do you participate in: running, bicycling and swimming frequency: 1-2 times per week Review of Systems (Anesthesia) ROS Narrative System reviewed and no additional complaints, except as documented.
--- NOTE | 2025-01-25 12:25 | FALS_PTH ---
PATIENT: AMELIA GUERRA LOC: [facility] [place] U#:[id number] AGE/SX: 39/F ROOM: RE01/25/[address]: Dr. Caitlin Hartman, MDDOB: 1985 BED: DIS: 01/25/2025 SPEC #: [id number] RECD: 01/25/25 13:25 STATUS: CODIE EUGENE #: [id number] SAHARA: 01/25/25 12:[address]: Caitlin Hartman DEPT: SURGICAL PATHOLOGY RECD BY: Avel Taveras ENTERED: 01/25/25 14:37 SP TYPE: FALL TUBES OTHR DR: EVELIN WILSON MD Tissues: A - Fallopian tube Procedures: Surgery Specimen Level II HEADER OPERATION: Laparoscopic, bilateral salpingectomy PRE-OP DIAGNOSIS: Desire for sterilization TISSUE SUBMITTED: A- Bilateral fallopian tubes MICROSCOPIC DIAGNOSIS A. Fallopian tubes, bilateral salpingectomy: * Benign fallopian tubes with complete cross sections obtained * Benign paratubal cyst MICROSCOPIC DESCRIPTION Slides are reviewed. GROSS DESCRIPTION A. Received in formalin in a container labeled with the patient's name, date of , and bilateral fallopian tubes are 2 unoriented and fimbriated fallopian tube segments. The longest is 8.5 cm in length by 0.8 cm in diameter, and the shortest is 6 cm in length by 0.8 cm in diameter. Each display purple-ziegler, smooth, and glistening serosa with unremarkable fimbriated ends. Serial sections of each reveal a pinpoint lumen. Director Of Operations Home Health sections:A1. Longer tubeA2. [place] tube [facility] 01-28-2025 CPT:02447k5
[2025-01-25] MEDS: Bupivacaine 0.5% PF 10 ML VIAL (12:43)
--- NOTE | 2025-01-25 12:45 | OP.PCM_ITS ---
Operative Report (Standard) Operative Information Date of Procedure: 01/25/25 Pre-Operative Diagnosis: desires sterilization Post-Operative Diagnosis: same Surgery/Procedure Performed: laparoscopic bilateral salpingectomy press supervisor: No Type of Anesthesia: General and Local RN Documented Start/Stop Times: Operation Date: 01/25/25 12:25 Case Time Into Pre-Op 01/25/25 10:54 Procedure Start Time: 12:27 Procedure Stop Time: 12:44 Select all DRAINS/GRAFTS/IMPLANTS that apply: None Estimated Blood Loss: <5cc Fluids Replaced: 700 Specimen collected: Yes Description of specimen(s) removed: bilateral fallopian tubes Description of surgery: After informed consent was obtained patient was taken to the operating room she was placed in supine position she was given anesthesia. She was then placed in the [facility] stirrups and she was prepped and draped in normal sterile fashion. Bladder was drained prior to the start of procedure. At this time attention was turned to the vaginal portion where weighted speculum placed at posterior fornix vagina single-tooth tenaculum was used to gently grasp the inte rnal the cervix. uterus was gently sounded to approximately 8 cm. Uterine manipulator was placed without difficulty. Legs then placed in parallel with the abdomen the tenaculum and the weighted speculum were removed. 2 towel clamps were placed at level of umbilicus. Marcaine was injected infraumbilical and a small incision was made. The 5 mm trocar was placed under direct visualization. CO2 gas was used to insufflate the intra-abdominal cavity. Upon inspection no gross abnormalities appreciated- the uterus tubes and ovaries appeared to be normal. At this time then the LLQ and RLQ ports were placed First Marcaine was injected and small incision was made a knife and the 5 mm trocars were placed. At this time then tubes were traced back to the fimbriated ends. Enseal was used to coagulate and ligate along mesosalpinx bilaterally until tubes removed completely. Good hemostasis was appreciated. At this time procedure was deemed complete successful. The gas was desufflated on from the intra-abdominal cavity. The trochars were removed. Skin was closed using 4-0 Monocryl in a subcutaneous fashion. Dermabond glue was placed. Instrument lap and needle counts were correct ?2. The uterine manipulator was removed. Vaginal sweep was performed it was negative. There were no complications anticipated normal postoperative course for this patient. Surgical Findings: normal tubes and ovaries. prominent vasculature on right Complications Complications: No Admit VTE Documentation VTE Present on Admission: Yes VTE Mechan Device Prophylaxis: SCD's VTE Pharm Prophylaxis ordered?: No Reason prophylaxis not ordered: Treatment Not Indicated
--- NOTE | 2025-01-25 12:59 | PCM.POST.ANE ---
Anesthesia: Postop Eval I Current Vital Signs Temperature: 97.0 F Pulse Rate: 65 Blood Pressure: 101/38 Respiratory Rate: 18 Pulse Ox: 100 Assessment Airway patent: Yes Spontaneous unlabored respirations: Yes nausea: No Vomiting: No Anesthesia Complication: No Fluid Hydration Crystalloid volume administer (ml): 700 Total IV fluid infused: 700 Progress Note Anesthesia document: Postop Eval 1 completed: Yes
--- NOTE | 2025-01-25 13:31 | POSTOPAN2_ITS ---
Anesthesia Postop Eval I Sum Postop Eval Completion status Anesthesia document: Postop Eval 1 completed: Yes Anesthesia Postop Eval I Summary Anesthesia Postop Eval I Summary: Anesthesia Postop Eval I: Assessment Summary Airway patent Yes 01/25/25 12:59 TRANSITION MGR RN.CSIR Spontaneous unlabored Yes 01/25/25 12:59 TRANSITION MGR RN.CSIR respirations Mental status nausea No 01/25/25 12:59 TRANSITION MGR RN.CSIR Vomiting No 01/25/25 12:59 TRANSITION MGR RN.CSIR Anesthesia Postop Eval I: Fluid Summary Crystalloid volume administer 700 01/25/25 12:59 TRANSITION MGR RN.CSIR (ml) Colloids volume administered ( ml) Blood Product volume administered (ml) Total IV fluid infused 700 01/25/25 12:59 TRANSITION MGR RN.CSIR Anesthesia Postop Eval I: Summary Notes Anesthesia Complication No 01/25/25 12:59 TRANSITION MGR RN.CSIR Anesthesia Complication Comment: Post-operative progress note Anesthesia: Postop Eval II Evaluation Mental status: Awake Pain Level: 0 nausea: No Vomiting: No
--- NOTE | 2025-01-25 13:31 | PCM.POSTANE2 ---
Anesthesia Postop Eval I Sum Postop Eval Completion status Anesthesia document: Postop Eval 1 completed: Yes Anesthesia Postop Eval I Summary Anesthesia Postop Eval I Summary: Anesthesia Postop Eval I: Assessment Summary Airway patent Yes 01/25/25 12:59 RADIO REPAIR [email or web address].[email or web address] Spontaneous unlabored Yes 01/25/25 12:59 RADIO REPAIR TEACHER.CSIR respirations Mental status nausea No 01/25/25 12:59 RADIO REPAIR TEACHER.CSIR Vomiting No 01/25/25 12:59 RADIO REPAIR TEACHER.CSIR Anesthesia Postop Eval I: Fluid Summary Crystalloid volume administer 700 01/25/25 12:59 RADIO REPAIR TEACHER.CSIR (ml) Colloids volume administered ( ml) Blood Product volume administered (ml) Total IV fluid infused 700 01/25/25 12:59 RADIO REPAIR TEACHER.CSIR Anesthesia Postop Eval I: Summary Notes Anesthesia Complication No 01/25/25 12:59 RADIO REPAIR TEACHER.CSIR Anesthesia Complication Comment: Post-operative progress note Anesthesia: Postop Eval II Evaluation Mental status: Awake Pain Level: 0 nausea: No Vomiting: No
== END 2025-01-25 14:46 | disposition home or self-care (01) ==
LOC: SDC 10:47 → AC 10:48
PROVIDERS: Anesthesiology; PCP Family Medicine; Referring Provider Obstetrics & Gynecology; Visit Provider Obstetrics & Gynecology
PROC: (CPT 58661; principal; 2025-01-25 12:10)
DX: Z30.2 Encounter for sterilization (principal); F41.1 Generalized anxiety disorder; Z79.899 Other long term (current) drug therapy
CPT/HCPCS: 58661; 00840; 81025; 88302; J2405